=== PATIENT | female | born 1995 | race Caucasian/White ===

== ENCOUNTER 2024-05-21 10:43 | Emergency (ER) | payer BC, OTHER ==
[2024-05-21 12:15] LABS: Bacteria/HPF None Seen HPF (None Seen); Bilirubin Negative (Negative); Blood, Urine Negative (Negative); CAUTI Indications for Culture Pregnancy; Clarity Clear (Clear); Glucose, Urine (Dipstick) Normal (Negative); Ketone, Urine Negative (Negative); Leukocyte Negative Leu/uL (Negative); Nitrite Negative (Negative); Protein, Urine (Dipstick) Negative (Neg-Trace); RBC/HPF None Seen HPF (0-3); Specific Gravity, Urine 1.012 (1.002-1.036); Squamous Epithelial 0-3 HPF (0-3); Urobilinogen Normal mg/dL (Less than 2); WBC/HPF 0-3 HPF (0-3); pH, Urine 7.5 (5.0-9.0)
[2024-05-21 12:20] LABS: Urine Culture Reflex Yes Yes
[2024-05-21] MEDS ORDERED: predniSONE 20 MG TAB ONE (12:24)
[2024-05-21] MEDS ORDERED: Acetaminophen 500 MG TAB ONE (12:24)
[2024-05-21 13:14] LABS: Influenza A by NAA Not Detected (NotDetected); Influenza B by NAA Not Detected (NotDetected); SARS-CoV-2 NAA Rapid Test Not Detected (NotDetected)
== END 2024-05-21 14:21 | disposition home or self-care (01) ==
LOC: ERS 10:43
DX: O99.892 Other specified diseases and conditions complicating childbirth (principal); R10.32 Left lower quadrant pain; O99.512 Diseases of the respiratory system complicating pregnancy, second trimester; J20.9 Acute bronchitis, unspecified; Z3A.18 18 weeks gestation of pregnancy
CPT/HCPCS: 71045; 76815; 81001; 87086; 93005; J7512